=== PATIENT | male | born 2000 | race Asian ===

== ENCOUNTER 2023-10-11 09:39 | Emergency (ER) | payer OTHER ==
[~2023-10-11] VITALS: Ht 180.3 cm; Wt 60.7 kg
[2023-10-11 09:40] VITALS: BP 140/75; TEMP 97.6; O2SAT 100
[2023-10-11] MEDS: NS 1,000 ML IV ONE (10:33)
[2023-10-11] MEDS: ONDANSETRON 4MG 2ML VIAL IV ONE (10:33)
[2023-10-11 11:04] LABS: BASO % 0.2 % (0.0-1.0); EOS # 0.1 10^3/uL (0.0-0.5); EOS % 0.6 % (0.0-3.0); HEMATOCRIT 48.2 % (42.0-52.0); HEMOGLOBIN 16.7 g/dl (13.5-17.5); LYMPH # 0.4 10^3/uL (1.5-5.0); LYMPH % 2.9 % (24.0-44.0); MEAN CORPUSCULAR HEMOGLOBIN 31.7 pg (27.0-33.0); MEAN CORPUSCULAR HGB CONC 34.6 g/dl (32.0-36.5); MEAN CORPUSCULAR VOLUME 91.6 fl (80.0-96.0); MONO # 0.7 10^3/uL (0.0-0.8); MONO % 5.1 % (2.0-8.0); NEUTROPHILS # 12.7 10^3/uL (1.5-8.5); NEUTROPHILS % 90.8 % (36.0-66.0); PLATELET COUNT, AUTOMATED 313 10^3/uL (150-450); RED BLOOD COUNT 5.26 10^6/uL (4.30-6.10); WHITE BLOOD COUNT 13.9 10^3/uL (4.0-10.0)
[2023-10-11] MEDS ORDERED: ISOVUE-370 76% 100ML VIAL As Ordered ONE (11:32)
[2023-10-11 11:34] LABS: ALBUMIN 4.5 G/DL (3.2-5.2); BILIRUBIN,DIRECT 0.2 MG/DL (<0.4); BILIRUBIN,TOTAL 0.9 MG/DL (0.3-1.2); TOTAL PROTEIN 8.1 G/DL (5.7-8.2)
[2023-10-11] MEDS ORDERED: ONDA-282 PO (13:42)
== END 2023-10-11 14:22 | disposition home or self-care (01) ==
LOC: M ED 09:39
DX: R11.2 Nausea with vomiting, unspecified (principal); R19.7 Diarrhea, unspecified; Z88.0 Allergy status to penicillin; Z88.1 Allergy status to other antibiotic agents
CPT/HCPCS: 74177; 80047; 80076; 83690; 85025; 96361; 96374; 99283; J2405; Q9967

== ENCOUNTER 2024-12-05 10:25 | Emergency (ER) | payer OTHER ==
[~2024-12-05] VITALS: Ht 180.3 cm; Wt 69.8 kg
[~2024-12-05 10:25] MED LIST: ONDA-282 PO
[2024-12-05] MEDS ORDERED: VITA100093 PO (10:37)
[2024-12-05] MEDS: IBUPROFEN 600 MG TAB PO ONE (12:08)
[2024-12-05 12:48] VITALS: BP 143/84; TEMP 97.7; O2SAT 98
== END 2024-12-05 12:50 | disposition home or self-care (01) ==
LOC: M ED 10:25
DX: J06.9 Acute upper respiratory infection, unspecified (principal); I10 Essential (primary) hypertension; Z88.0 Allergy status to penicillin; Z88.1 Allergy status to other antibiotic agents